=== PATIENT | male | born 1990 | race Caucasian/White ===

== ENCOUNTER 2024-03-20 20:59 | Emergency (ER) | payer BC, OTHER, SELFPAY ==
[2024-03-20 21:01] VITALS: BP 143/81; PULSE 74; RESP 16; TEMP 36.4; O2SAT 98; BMI 29.0
--- NOTE | 2024-03-20 21:32 | RAD_ITS ---
INDICATION: throat foreign body EXAMINATION/TECHNIQUE: X-RAY - XR Neck Soft Tissue COMPARISON: None. FINDINGS: SOFT TISSUES: Unremarkable. No radiopaque foreign body. EPIGLOTTIS: No pathologic thickening or enlargement. PROXIMAL AIRWAY: Grossly patent. RAD/Neck for Soft Tissue IMPRESSION: No radiodense foreign body.. Electronically Signed: Chan Shaffer MD at 22:00 EDT ,
--- NOTE | 2024-03-20 22:12 | EDS_ITS ---
HPI History of Present Illness Chief Complaint: Foreign Body Informant: patient Narrative Narrative: 33-year-old male presenting to the emergency room with possible foreign body in the throat/esophagus. Patient states he made some chicken Parmesan soup tonight and discovered that there was some bones in the soup. He states that other people were spit them out but he realized that he had something hard and he swallowed it and felt like there is something still in his laryngeal area. No some discomfort with turning his neck. He is concerned about what may have happened if he would swallow it. Denies any difficulty breathing. Denies any difficulty handling his secretions. Has had prior meat impactions that he has been able to get up with vomiting before. PFSH PFSH Medical History no medical history Home Medications ?Medication ?Instructions ?Recorded ?Last Taken ?Type oxycodone-acetaminophen 5 mg-325 1 - 2 tab PO Q4H PRN PRN Pain #20 12/06/13 Unknown Rx mg tablet tabs Allergy/AdvReac Type Severity Reaction Status Date / Time No Known Allergies Allergy Verified 03/20/24 21:04 Family History no significant family his Surgical History no surgical history Social History Smoking Status: Never smoker ROS ROS ED Constitutional Constitutional ED: Denies chills, fever(s) or weight loss Eyes Eyes: Denies change in vision or diplopia ENT ENT ED: Denies ear pain, rhinorrhea or sore throat Cardiovascular Cardiovascular: Denies chest pain, orthopnea, palpitations or racing heartbeat Respiratory/Chest Respiratory/Chest: Denies cough, dyspnea or orthopnea Gastrointestinal Gastrointestinal: Denies abdominal pain, diarrhea, nausea or vomiting Genitourinary Genitourinary ED: Denies dysuria, hematuria or urinary frequency Musculoskeletal Musculoskeletal: Reports neck pain; Denies arthralgias or myalgias Integumentary Denies abscess or rash Neurologic Neurologic: Denies headache(s) or weakness Psychiatric Psychiatric: Denies anxiety, depression, suicidal ideation or suicidal thoughts Endocrine Endocrinology: Denies polydipsia, polyphagia or polyuria Allergic/Immunologic Allergic/Immunologic ED: Denies mouth swelling, tongue swelling or urticaria EXAM Physical Exam Const Vital Signs: 03/20/24 21:01 03/20/24 21:14 Temperature 97.6 F L Temperature Source Oral Pulse Rate 74 Respiratory Rate 16 Respiratory Effort Normal Respiratory Pattern Normal Blood Pressure 143/81 H Blood Pressure Mean 101 Pulse Ox 98 Oxygen Delivery Method Room Air Positive well nourished and well developed General Appearance ED: well developed HEENT Reports normocephalic, head/scalp atraumatic and moist mucous membranes HEENT Narrative: No stridor Eyes PERRL and EOMs intact bilaterally Neck no lymphadenopathy, supple and no JVD Resp normal respiratory effort and clear to auscultation bilaterally Cardio regular rate, regular rhythm and no murmurs GI normal to inspection, nondistended, normoactive bowel sounds and non-tender Palpation: soft Back/Spine no CVA tenderness and normal ROM Extremity normal to inspection General Extremety ED: Negative for edema General Extremity: Negative for edema Neuro oriented x3 and CN's II-XII intact bilaterally Sensorium / Orientation: alert Motor Exam: strength 5/5 throughout Psych mental status grossly normal Mood & Affect: Negative for depressed or tearful Skin no rashes or lesions noted and no wounds MDM MDM MDM Narrative Medical decision making narrative: Differential diagnosis includes but not limited to esophageal food impaction pharyngeal abrasion pharyngeal foreign body perforated esophagus aspiration Patient is pointing to his larynx area as the area of discomfort. His abdomen is benign lung sounds are clear there is no stridor. My independent interpretation of the plain films of the neck is no obvious radiopaque foreign body. I spoke with both gastroenterology (Dr. Campos) as well as ENT (Dr. Gregg). Think is reasonable that the patient can be discharged home tonight. If he still having symptoms in the morning he will call Dr. Gregg's office. He is handling his secretions he is able to swallow. I do not feel that we necessarily need to advance image to the neck chest or abdomen pelvis tonight. Patient notes understanding of plan return if worsening History & Record Review Discussion w/independent historian: Patient Radiography Diagnostic Testing: Clinical Impression(s) from Imaging Studies Soft Tissue Neck X-Ray 03/20/24 21:32 IMPRESSION: No radiodense foreign body.. Electronically Signed: Chan Shaffer MD at 22:00 EDT Reading Location ID and State: [facility] / [place] Tel , Service support , Discharge Plan Triage Chief Complaint: Foreign Body ED Provider: Nasir Ribera Dx/Rx/DC Orders Clinical Impression: Abrasion of pharynx Instructions: ED Pharyngeal Abrasion Prescriptions: No Action oxycodone-acetaminophen 1 TABLET tablet 1 - 2 tab PO Q4H PRN PRN (Reason: Pain) Qty: 20 0RF Primary Care Provider: Rehana Haro NP Referrals: Sushant Gregg MD [Med Staff - Active Staff] - As Needed (for ENT as discussed) Rehana Haro NP, [employer] [Primary Care Provider] - Print Language: [place] Citizen Disposition Disposition: Home, Self Care Discharge Date/Time: 03/20/24 23:16
== END 2024-03-20 23:16 | disposition home or self-care (01) ==
PROVIDERS: Emergency Provider Emergency Medicine; PCP Nurse Practitioner Primary Care; Referring Provider Emergency Medicine; Visit Provider Emergency Medicine
DX: S10.11XA Abrasion of throat, initial encounter (principal); X58.XXXA Exposure to other specified factors, initial encounter
CPT/HCPCS: 70360; 99282